=== PATIENT | female | born 1980 ===

== ENCOUNTER 2021-08-25 20:56 | Inpatient (IN) | payer MEDICAID ==
[2021-08-25] MEDS ORDERED: METHYLERGONOVINE MALEATE 0.2 MG/ML VIAL IM PRN (22:25)
[2021-08-25] MEDS ORDERED: MINERAL OIL 30 ML ORAL LIQD PO PRN (22:25)
[2021-08-25] MEDS ORDERED: BUTORPHANOL 2 MG/1 ML INJ IV PRN (22:25)
[2021-08-25] MEDS ORDERED: OXYTOCIN 10 UNIT/1 ML INJ IM PRN (22:25)
[2021-08-25] MEDS ORDERED: ACETAMINOPHEN 325 MG TAB PO PRN (22:25)
[2021-08-25] MEDS ORDERED: CARBOPROST TROMETHAMINE 250 MCG/1 ML INJ IM PRN (22:25)
[2021-08-25] MEDS ORDERED: ePHEDrine SULFATE 50 MG/1 ML INJ IV PRN (22:25)
[2021-08-25] MEDS ORDERED: fentaNYL 100 MCG/2 ML INJ IV PRN (22:25)
[2021-08-25] MEDS ORDERED: LIDOCAINE (2%) 20 MG/1 ML VIAL 20 ML MDV INFILTRATI ONE (22:25)
[2021-08-25] MEDS ORDERED: TERBUTALINE 1 MG/1 ML INJ SUB-Q PRN (22:25)
[2021-08-25] MEDS ORDERED: DINOPROSTONE 10 MG VAG SUPP VG ONE (22:25)
[2021-08-25] MEDS ORDERED: LOPERAMIDE 2 MG CAP PO PRN (22:25)
[2021-08-25] MEDS ORDERED: miSOPROStol 200 MCG TAB PR PRN (22:25)
[2021-08-25 22:49] LABS: Mean Corpuscular HGB Conc 34 % (30-34)
[2021-08-25] MEDS ORDERED: OXYTOCIN DRIP 30 UNITS/500 ML BAG IV SCH ×2 (23:00)
[2021-08-25] MEDS ORDERED: AMPICILLIN/NS 2 GM/100 ML 2 GM/100 ML BAG IV ONE (23:00)
[2021-08-25] MEDS: LACTATED RINGERS 1,000 ML IV SCH (23:06)
[2021-08-25 23:08] LABS: Hematocrit 40.4 % (30.3-42.9); Hemoglobin 13.7 gm/dl (10.1-14.3); Mean Corpuscular Volume 93 fl (79-97); Red Blood Count 4.35 M/mm3 (3.65-5.03)
[2021-08-25 23:11] LABS: Albumin 3.1 g/dL (3.9-5); Calcium 8.8 mg/dL (8.4-10.2)
[2021-08-25 23:24] LABS: Platelet Count 107 K/mm3 (140-440)
[2021-08-26 00:13] LABS: Alanine Aminotransferase 17 units/L (7-56); Albumin 3.1 g/dL (3.9-5); BUN/Creatinine Ratio 17; Blood Urea Nitrogen 15 mg/dL (7-17); Hemolysis Index 34
[2021-08-26] MEDS: AMPICILLIN/NS 1 GM/50 ML 1 GM/50 ML BAG IV SCH ×3 (05:22→14:42)
[2021-08-26] MEDS: LACTATED RINGERS 1,000 ML IV SCH ×3 (09:25→22:04)
--- NOTE | 2021-08-26 10:31 | History and Physical Report ---
History of Present Illness Date of examination: 08/26/21 Date of admission: 08/25/21 20:56 Chief complaint: Presents for a scheduled induction of labor due to Cholestasis of History of present illness: Early entry to care at [facility], course complicated by Advanced Maternal Age and Cholestasis. Past History Past Medical History: no pertinent history Past Surgical History: no surgical history Family/Genetic History: hypertension Social history: no significant social history - Obstetrical History Expected Date of Delivery: 09/06/21 Actual Gestation: 38 Week(s) 3 Day(s) : 4 Para: 3 Hx # Term Pregnancies: 3 Number of Living Children: 3 #1 Gender: Male year: 1,[birth year] Birthweight: 3.175 kg Method of Delivery: Vaginal Gestational age at delivery: 40 Complications: none #2 Infant Gender: Female year: 2,[birth year] Birthweight: 2.863 kg Method of Delivery: Vaginal Gestational age at delivery: 40 Complications: none #3 Gender: Female year: 2,009 Birthweight: 3.77 kg Method of Delivery: Vaginal Gestational age at delivery: 40 Complications: none Medications and Allergies Allergies Allergy/AdvReac Type Severity Reaction Status Date / Time No Known Allergies Allergy Unverified 09/30/14 23:14 Home Medications Medication Instructions Recorded Confirmed Last Taken Type No Known Home Medications [No 09/30/14 09/30/14 Unknown History Reported Home Medications] Active Meds: Active Medications Acetaminophen (Acetaminophen 325 Mg Tab) 650 mg PO Q4H PRN PRN Reason: Pain, Mild (1-3) Butorphanol Tartrate (Butorphanol 2 Mg/1 Ml Inj) 1 mg IV Q2H PRN PRN Reason: Pain, Moderate(4-6) LABOR PAIN Carboprost Tromethamine (Carboprost Tromethamine 250 Mcg/1 Ml Inj) 250 mcg IM ONCE PRN PRN Reason: Uterine Bleeding Ephedrine Sulfate (Ephedrine Sulfate 50 Mg/1 Ml Inj) 10 mg IV Q2M PRN PRN Reason: Hypotension Fentanyl (Fentanyl 100 Mcg/2 Ml Inj) 100 mcg IV Q2H PRN PRN Reason: Pain,Severe (7-10) LABOR PAIN Oxytocin/Sodium Chloride (Pitocin/Ns 30 Unit/500ml) 30 units in 500 mls @ 2 mls/hr IV TITR ERENDIRA; Protocol Last Admin: 08/26/21 08:15 Dose: 2 mls/hr, 2 mls/hr Documented by: Lactated Ringer's (Lactated Ringers) 1,000 mls @ 125 mls/hr IV DIRECT ERENDIRA Last Admin: 08/26/21 09:25 Dose: 125 mls/hr Documented by: Oxytocin/Sodium Chloride (Pitocin/Ns 30 Unit/500ml) 30 units in 500 mls @ 40 mls/hr IV TITR ERENDIRA; Protocol Ampicillin Sodium (Ampicillin/Ns 1 Gm/50 Ml) 1 gm in 50 mls @ 100 mls/hr IV Q4H ERENDIRA; Protocol Last Admin: 08/26/21 05:22 Dose: 100 mls/hr Documented by: Loperamide HCl (Loperamide 2 Mg Cap) 2 mg PO ONCE PRN PRN Reason: give with Hemabate Methylergonovine Maleate (Methylergonovine Maleate 0.2 Mg/Ml Vial) 0.2 mg IM ONCE PRN PRN Reason: Uterine Bleeding Mineral Oil (Mineral Oil 30 Ml Oral Liqd) 30 ml PO QHS PRN PRN Reason: Constipation Misoprostol (Misoprostol 200 Mcg Tab) 800 mcg MN ONCE PRN PRN Reason: Uterine Bleeding Oxytocin (Oxytocin 10 Unit/1 Ml Inj) 10 unit IM ONCE PRN PRN Reason: Uterine Bleeding Terbutaline Sulfate (Terbutaline 1 Mg/1 Ml Inj) 0.25 mg SUB-Q ONCE PRN PRN Reason: Hyperstimulation/Hypertonicity Review of Systems All systems: negative - Vital Signs Vital signs: Vital Signs Pulse Pulse Ox 87 99 08/25/21 21:25 08/25/21 21:25 Temp Pulse Resp BP Pulse Ox 99.1 F 78 12 123/68 99 08/25/21 21:29 08/26/21 10:22 08/25/21 21:29 08/26/21 08:07 08/26/21 10:22 - Physical Exam Breasts: Positive: normal Cardiovascular: Regular rate Lungs: Positive: Clear to auscultation, Normal air movement Abdomen: Positive: normal appearance, soft, normal bowel sounds Genitourinary (Female): Positive: normal external genitalia, normal perenium Vagina: Positive: normal moisture Uterus: Positive: enlarged Anus/Rectum: Positive: normal perianal skin - Obstetrical FHR: category 1 Uterine Contraction Monitor Mode: External Cervical Dilatation: 1 Cervical Effacement Percentage: 20 station: -4 Uterine Contraction Pattern: Irregular Uterine Tone Measurement Phase: Resting Uterine Contraction Intensity: Moderate Results Result Diagrams: 08/25/21 21:42 08/25/21 23:27 Abnormal lab results 08/25/21 08/25/21 08/25/21 Range/Units 21:42 21:42 23:27 RDW 16.0 H (13.2-15.2) % Plt Count 107 L (140-440) K/mm3 Sodium 134 L 134 L (137-145) mmol/L Carbon Dioxide 19 L 19 L (22-30) mmol/L Alkaline Phosphatase 270 H 254 H (35-129) units/L Albumin 3.1 L 3.1 L (3.9-5) g/dL All other labs normal. Assessment and Plan A: IUP @ 38 3/7 Weeks Category I Tracing AMA Cholestasis of GBS Positive P: Admit to L&D Per Routine Orders Low-Dose Pitocin Cook's Cerical Ripening Balloon GBS Prophylaxis
[2021-08-26] MEDS ORDERED: METOCLOPRAMIDE 10 MG/2 ML INJ ONE (18:55)
[2021-08-26] MEDS ORDERED: BICITRA ORAL LIQD 30ML ONE (18:55)
[2021-08-26] MEDS ORDERED: ceFAZolin/Water 2 GM/20 ML 2 GM/20 ML SYRINGE IV ONE (18:56)
[2021-08-26] MEDS ORDERED: FAMOTIDINE 20 MG/2 ML INJ IV ONE (18:56)
[2021-08-26] MEDS ORDERED: FAMOTIDINE 20 MG/2 ML INJ IV SCH (18:58)
[2021-08-26] MEDS ORDERED: METOCLOPRAMIDE 10 MG/2 ML INJ IV SCH (18:58)
[2021-08-26] MEDS ORDERED: BICITRA ORAL LIQD 30ML PO SCH (18:58)
--- NOTE | 2021-08-26 18:59 | Event Note ---
Date: 08/26/21 sign out received from BRITTANY Vines. I was called to bedside by nurse because pt wanted the balloon removed. When I examined the patient the gentle tug on wilder balloon and same removed without difficulty. Pt was in a pool of water and pelvic exam done by me with no presenting part felt in the pelvis. U/S at bedside by me confirmed breech presentation and all induction stopped. Discussed new plan of care for delivery via section. Discussed the risks and benefits and alternatives. Consents obtained and tile finisher used to sign consents. Provider Jasmyn notified of my findings and message sent to MD valerio at that time. NICU and Anesthesiologist notified and will plan for delivery in the OR. Pelvic now -/high.
[2021-08-26] MEDS ORDERED: ONDANSETRON 4 MG/2 ML INJ ONE ×2 (19:05)
[2021-08-26] MEDS ORDERED: ONDANSETRON 4 MG/2 ML INJ IV PRN (19:16)
[2021-08-26] MEDS ORDERED: HYDROmorphone 1 MG/1 ML INJ IV PRN ×2 (19:16)
[2021-08-26] MEDS ORDERED: NALOXONE 0.4 MG/1 ML INJ IV PRN ×2 (19:16→21:52)
--- NOTE | 2021-08-26 19:16 | Anesthesia Consultation ---
Anesthesia Consult and Med Hx Date of service: 08/26/21 - Airway Anesthetic Teeth Evaluation: Poor ROM Head & Neck: Adequate Mental/Hyoid Distance: Adequate Mallampati Class: Class II Intubation Access Assessment: Probably Good - Pulmonary Exam CTA: Yes - Cardiac Exam Cardiac Exam: RRR - Pre-Operative Health Status ASA Pre-Surgery Classification: ASA2 Proposed Anesthetic Plan: Spinal - Pulmonary Hx Smoking: No Hx Asthma: No Hx Respiratory Symptoms: No SOB: No COPD: No Home Oxygen Therapy: No Hx Pneumonia: No Hx Sleep Apnea: No - Cardiovascular System Hx Hypertension: No Hx Coronary Artery Disease: No Hx Heart Attack/AMI: No Hx Angina: No Hx Percutaneous Transluminal Coronary Angioplasty (PTCA): No Hx Cardia Arrhythmia: No Hx Pacemaker: No Hx Internal Defibrillator: No Hx Valvular Heart Disease: No Hx Heart Murmur: No Hx Peripheral Vascular Disease: No - Central Nervous System Hx Neuromuscular Disorder: No Hx Seizures: No CVA: No Hx Back Pain: Yes Hx Psychiatric Problems: No - Gastrointestinal Hx Ulcer: No Hx Gastroesophageal Reflux Disease: Yes (Cholestasis of ) - Endocrine Hx Renal Disease: No Hx End Stage Renal Disease: No Hx Cirrhosis: No Hx Liver Disease: No Hx Insulin Dependent Diabetes: No Hx Non-Insulin Dependent Diabetes: No Hx Thyroid Disease: No Hx Hypothyroidism: No Hx Hyperthyroidism: No - Hematic Hx Anemia: No Hx Sickle Cell Disease: No - Other Systems Hx Alcohol Use: No Hx Substance Use: No Hx Cancer: No Hx Obesity: Yes
[2021-08-26] MEDS ORDERED: PHENYLEPHRINE/NS 1,000 MCG/10 ML SYRINGE (OR USE) IV ONE (19:27)
[2021-08-26] MEDS ORDERED: ceFAZolin/STERILE WATER 2 GM/20 ML SYRINGE IV ONE (19:30)
[2021-08-26] MEDS ORDERED: SODIUM CHLORIDE 0.9% IRR 1,500 ML BOTTLE IR ONE (20:00)
[2021-08-26] MEDS ORDERED: WATER FOR IRRIG STERILE 1,500 ML BOTTLE IR ONE (20:00)
[2021-08-26] MEDS ORDERED: BUPIVACAINE/PF (0.25%) 2.5 MG/ML 30 ML VIAL INFILTRATI ONE ×2 (20:05)
[2021-08-26] MEDS ORDERED: dexAMETHasone 20 MG/5 ML VIAL ONE (20:05)
--- NOTE | 2021-08-26 21:48 | Progress Note ---
Spinal Anesthesia Block - Spinal Anesthesia Block Start Time: 19:30 Stop Time: 19:34 Performed by:: CHARY PENG Procedure: Patient IDed, H&P reviewed, all questions and concerns were answered, and consent was signed. Timeout was performed at bedside. Patient in sitting position. Sterile prep and drape was performed. [3] ml of 1% lidocaine skin wheal at L[3]- L [4]. Needle introducer advanced. 25 gauge spinal needle advanced. Clear, free flowing CSF. negative blood, negative paresthesia. Spinal dose given. All needles removed. Patient tolerated procedure.
--- NOTE | 2021-08-26 21:51 | Progress Note ---
Regional Anesthesia Block - Regional Anesthesia Block Start Time: 21:31 Stop Time: 21:33 Performed By:: CHARY PENG Procedure: Patient consented for TAP block for post surgical pain management. Patient identified, monitors placed, and time out performed. TAP identified bilaterally via ultrasound. Skin prepped bilaterally with [chlorhexidine] and [22g stimuplex] needle advanced to the TAP. [Marcaine 0.25% 30ml] injected under ultrasound guidance on the [left] side. [Marcaine 0.25% 30ml] injected under ultrasound guidance on the [right] side. Negative aspiration every 5mL, No change in heart rate or rhythm. Patient tolerated the procedure well. No apparent complications seen.
[2021-08-26] MEDS ORDERED: LANOLIN/ZINC/DIMETHICONE (LANSINOH) 7 GM TP PRN (21:52)
[2021-08-26] MEDS ORDERED: WITCH HAZEL/ GLYCERIN PAD TP PRN (21:52)
[2021-08-26] MEDS ORDERED: MAGNESIUM HYDROXIDE (MOM) ORAL LIQD UDC PO PRN (21:52)
[2021-08-26] MEDS ORDERED: IBUPROFEN 600 MG TAB PO PRN (21:52)
[2021-08-26] MEDS ORDERED: SIMETHICONE 80 MG CHEW TAB PO PRN (21:52)
[2021-08-26] MEDS ORDERED: MORPHINE 4 MG/1 ML INJ IV PRN (21:52)
[2021-08-26] MEDS ORDERED: OXYTOCIN DRIP 30 UNITS/500 ML BAG IV SCH (22:00)
--- NOTE | 2021-08-26 22:20 | Procedure Note ---
OB Delivery Note - Delivery Date of Delivery: 08/26/21 Surgeon: KRISTINE FERRER Estimated blood loss: other (544cc) - Section Preop diagnosis: breech, other (Thrombocytopenia; Induction stopped when breech presentation identified via ultrasound at bedside) Postop diagnosis: same section procedure: primary low transverse Disposition: floor Complications: none Narrative: Date: 08/26/21 Surgeon: Kristine Ferrer MD Preop Dx: Term IUP at 38.3wks with cholestasis, Induction terminated with breech presentation via ultrasound, thrombocytopenia Postop Dx: same Procedure : Primary Low transverse section Anesthesia: Spinal and then tap block in recovery room Intake: 1200cc crystalloids Output: 100cc clear urine at end of procedure EBL: 544cc per QBL by nurse After the risks, benefits and alternatives of procedure discussed, patient signed consents and was taken to the operating room. Pt was given spinal anesthesia. After same was adequate, patient was prepped and draped in the usual sterile fashion. Milner catheter in place and draining clear urine. Pt was given prophylactic antibiotic per protocol and time out was done Pfannenstiel skin incision was made and taken sharply to the fascia and the incision extended using electrocautery. Superior edge of the fascia was grasped with demi clamps and the rectus muscle using blunt dissection and also using electrocautery. Lower portion of the fascia also with electrocautery. Rectus muscle in the midline and Peritoneal cavity entered bluntly and extended with good visualization of the bladder. The bladder flap was created sharply using metzenbaum scissors. Ceasar retractor used and bladder blade as well. Lower uterine segment then entered transversely, thru anterior placenta inferior edge and amniotic sac entered bluntly. Uterine incision extended using bandage scissors. Infant delivered esau breech without difficulty, bulb suctioned, cord clamped and baby handed to waiting pediatricians. Placenta then delivered completely and uterine cavity cleared of all clots and debri. The uterus was not exteriorized and closed in 2 layers using 0-monocryl suture in a running locked fashion and then an additional layer of imbrication suture. Central additional suture placed figure of 8 to achieve excellent hemostasis. Surgicel placed along the uterine incision and electrocautery used along bladder flap edge with excellent hemostasis The gutters were cleared of clots and debri and anterior peritoneum closed using 3-0 vicryl suture and rectus muscle reapproximated using 0-vicryl suture. Rectus fascia closed with 0-vicryl suture in a continuous fashion and subcutaneo us tissue copiously irrigated with normal saline and re-approximated using 3-0 vicryl suture. Excellent hemostasis remains. The skin was closed with 4-0 monocryl] suture and steristrips placed with pressure dressing. Sponge, lap, instrument and needle counts x3 were normal. Patient tolerated the procedure well and was taken to recovery room stable. Findings: Viable male , esau breech presentation, APGARS 9/9 and weight 3110g. Clear amniotic fluid with anterior placenta; Normal uterus, tubes and ovaries. - Infant A at 1 minute: 9 at 5 minutes: 9 Infant Gender: Male (clear amniotic fluid, breech.)
--- NOTE | 2021-08-26 22:51 | Post Anesthesia Evaluation ---
- Post Anesthesia Evaluation Patient Participated: Yes Airway Patent: Yes Stable Respiratory Function: Yes Nausea/Vomiting: No Temp > 96.8F: Yes Pain Manageable: Yes Adequeate Hydration: Yes Anesthesia Complications: No Block Receding Appropriately: Yes Patient on Ventilator: No
[2021-08-27] MEDS ORDERED: D5W/LACTATED RINGERS 1,000 ML IV SCH (04:15)
--- NOTE | 2021-08-27 12:49 | Progress Note ---
Assessment and Plan A: /postop day 1 S/P primary LTCS. Cholestasis of . Thrombocytopenia. Obesity. P: Repeat CBC results pending. CMP repeated. Advance diet as tolerated. Advised patient to ambulate. Continue routine postop care. Subjective - Subjective Date of service: 08/27/21 Principal diagnosis: /postop day 1 S/P primary LTCS Interval history: Had cholestasis of . Thrombocytopenia; CBC has been drawn this morning and results are still pending. Patient reports: appetite normal, voiding normally, pain well controlled, flatus, ambulating normally, no dizzy ambulation, no nauseated : doing well Objective - Vital Signs Latest vital signs: Vital Signs Temp Pulse Resp BP BP Pulse Ox Pulse Ox 08/27/21 12:18 98.3 F 63 18 126/79 94 08/27/21 08:30 100 08/27/21 07:41 98.3 F 66 18 145/79 95 08/27/21 04:45 98.3 F 88 18 122/68 98 08/27/21 04:15 18 08/27/21 00:11 100 08/26/21 23:27 98.7 F 68 18 144/62 97 08/26/21 23:00 98.7 F 72 13 143/88 08/26/21 22:45 63 13 144/75 08/26/21 22:30 66 13 136/71 08/26/21 22:15 62 13 133/68 08/26/21 22:00 64 14 118/63 08/26/21 21:42 97.1 F L 61 15 118/60 08/26/21 19:07 82 99 08/26/21 19:02 78 96 08/26/21 18:57 80 96 08/26/21 18:55 91 H 93 08/26/21 18:52 110 H 98 08/26/21 18:49 75 90 08/26/21 18:47 79 97 08/26/21 18:42 76 99 08/26/21 18:37 112 H 87 08/26/21 18:32 93 H 100 08/26/21 18:28 94 H 92 08/26/21 18:27 101 H 93 08/26/21 18:22 75 99 08/26/21 18:17 77 99 08/26/21 18:12 92 H 100 08/26/21 18:07 79 133/75 100 08/26/21 18:02 76 99 08/26/21 17:57 76 99 08/26/21 17:52 71 98 08/26/21 17:47 65 99 08/26/21 17:42 67 98 08/26/21 17:37 59 L 99 08/26/21 17:32 66 99 08/26/21 17:27 59 L 99 08/26/21 17:22 67 98 08/26/21 17:17 71 99 08/26/21 17:12 68 99 08/26/21 17:07 62 98 08/26/21 17:02 65 99 08/26/21 16:57 58 L 99 08/26/21 16:52 58 L 98 08/26/21 16:47 60 98 08/26/21 16:42 71 98 08/26/21 16:37 64 98 08/26/21 16:32 68 98 08/26/21 16:27 70 97 08/26/21 16:26 71 126/65 08/26/21 16:22 76 100 08/26/21 16:17 71 100 08/26/21 16:12 66 97 08/26/21 16:07 60 99 08/26/21 16:02 64 98 08/26/21 15:57 78 99 08/26/21 15:52 76 99 08/26/21 15:47 85 99 08/26/21 15:42 72 99 08/26/21 15:37 75 100 08/26/21 15:32 88 99 08/26/21 15:27 82 99 08/26/21 15:22 65 99 08/26/21 15:17 64 97 08/26/21 15:12 63 98 08/26/21 15:07 62 98 08/26/21 15:02 63 97 08/26/21 14:57 63 96 08/26/21 14:52 76 98 08/26/21 14:51 64 94 08/26/21 14:47 74 96 08/26/21 14:42 68 98 08/26/21 14:37 70 99 08/26/21 14:36 61 133/85 08/26/21 14:32 60 98 08/26/21 14:27 62 98 08/26/21 14:22 74 99 08/26/21 14:17 68 98 08/26/21 14:12 78 99 08/26/21 14:07 68 97 08/26/21 14:02 65 98 08/26/21 13:57 68 98 08/26/21 13:54 67 93 08/26/21 13:52 62 98 08/26/21 13:47 61 99 08/26/21 13:42 67 97 08/26/21 13:37 63 97 08/26/21 13:32 82 98 08/26/21 13:27 65 98 08/26/21 13:22 57 L 97 08/26/21 13:17 61 98 08/26/21 13:12 68 99 08/26/21 13:07 74 99 08/26/21 13:02 62 98 08/26/21 12:57 66 99 08/26/21 12:52 70 98 08/26/21 12:47 68 97 Intake and Output 08/26/21 08/27/21 08/27/21 23:59 07:59 15:59 Intake Total 2791.567 100 260 Output Total 900 2600 Balance 1891.567 100 -2340 Intake: IV 2791.567 100 Lactated Ringers 1,000 ml 1537.5 @ 125 mls/hr IV DIRECT [facility] Rx#:[id number] PITOCin/NS 30 UNIT/500ML 54.067 30 units In 500 ml @ 2 mls/hr IV TITR ERENDIRA Rx#: [id number] ceFAZolin 2 GM In NaCl 0. 100 9% 100 ml @ 200 mls/hr IV Q8H [facility] Rx#:[id number] Oral 260 Output: Urine 900 2600 Indwelling Catheter 2200 Uretheral (Milner) 400 Void 400 Other: Total, Intake Amount 260 Total, Output Amount 600 # Voids Indwelling Catheter 1 Void 1 Estimated Blood Loss 544 - Exam Cardiovascular: Present: Regular rate Lungs: Present: Clear to auscultation Abdomen: Present: normal appearance, soft, normal bowel sounds. Absent: distention, tenderness, guarding, rigidity Uterus: Present: normal, firm, fundal height below umbilicus. Absent: bogginess, tenderness Extremities: Present: edema. Absent: tenderness Incision: Present: dry, dressed
[2021-08-27 13:19] LABS: Basophils % (Auto) 0.1 % (0.0-1.8); Hematocrit 39.7 % (30.3-42.9); Hemoglobin 12.9 gm/dl (10.1-14.3); Lymphocytes # (Auto) 1.8 K/mm3 (1.2-5.4); Lymphocytes % (Auto) 12.6 % (13.4-35.0); Mean Corpuscular HGB Conc 33 % (30-34); Mean Corpuscular Volume 93 fl (79-97); Monocytes # (Auto) 0.7 K/mm3 (0.0-0.8); Monocytes % (Auto) 4.7 % (0.0-7.3); Red Blood Count 4.28 M/mm3 (3.65-5.03); Red Cell Distribution Width 16.1 % (13.2-15.2)
[2021-08-27 14:39] LABS: Platelet Count 91 K/mm3 (140-440)
[2021-08-27] MEDS: oxyCODONE /ACETAMINOPHEN 5-325MG TAB PO PRN (15:14)
[2021-08-27] MEDS: IBUPROFEN 800 MG TAB PO PRN (18:26)
[2021-08-27 18:35] LABS: Albumin 2.8 g/dL (3.9-5); Calcium 8.6 mg/dL (8.4-10.2)
--- NOTE | 2021-08-28 06:28 | Progress Note ---
Subjective - Subjective Date of service: 08/28/21 Principal diagnosis: /postop day 2 S/P primary LTCS Interval history: continue routine postop care dc home tomorrow Ambrocio Pepper MD Patient reports: appetite normal, voiding normally, pain well controlled, ambulating normally : doing well Objective - Vital Signs Latest vital signs: Vital Signs Temp Pulse Resp BP Pulse Ox Pulse Ox 08/28/21 00:13 98.3 F 78 20 114/47 94 08/27/21 20:15 98 08/27/21 15:20 98.8 F 67 20 134/72 98 08/27/21 12:18 98.3 F 63 18 126/79 94 08/27/21 08:30 100 08/27/21 07:41 98.3 F 66 18 145/79 95 Intake and Output 08/27/21 08/27/21 08/28/21 15:59 23:59 07:59 Intake Total 360 260 Output Total 3000 1700 Balance -2640 -1440 Intake: IV 100 ceFAZolin 2 GM In NaCl 0. 100 9% 100 ml @ 200 mls/hr IV Q8H [facility] Rx#:[id number] Oral 260 260 Output: Urine 3000 1700 Indwelling Catheter 2200 Void 800 1700 Other: Total, Intake Amount 260 260 Total, Output Amount 400 800 # Voids Indwelling Catheter 1 Void 1 1 - Exam Breasts: Present: deferred Cardiovascular: Present: Regular rate Lungs: Present: Clear to auscultation Abdomen: Present: normal appearance, normal bowel sounds Vulva: both: normal Uterus: Present: normal, firm, fundal height below umbilicus Extremities: Present: normal Deep Tendon Reflex Grade: Normal +2 Incision: Present: normal, dry, dressed - Labs Labs: Abnormal lab results 08/27/21 08/27/21 Range/Units 13:03 17:59 WBC 14.3 H (4.5-11.0) K/mm3 RDW 16.1 H (13.2-15.2) % Plt Count 91 L (140-440) K/mm3 Lymph % (Auto) 12.6 L (13.4-35.0) % Seg Neutrophils % 82.6 H (40.0-70.0) % Seg Neutrophils # 11.8 H (1.8-7.7) K/mm3 Carbon Dioxide 21 L (22-30) mmol/L Glucose 103 H (65-100) mg/dL AST 43 H (5-40) units/L Alkaline Phosphatase 214 H (35-129) units/L Total Protein 5.6 L (6.3-8.2) g/dL Albumin 2.8 L (3.9-5) g/dL
[2021-08-28] MEDS: IBUPROFEN 800 MG TAB PO PRN (06:58)
[2021-08-28] MEDS: oxyCODONE /ACETAMINOPHEN 5-325MG TAB PO PRN (18:35)
--- NOTE | 2021-08-29 05:59 | Discharge Summary ---
Providers - Providers Date of Admission: 08/25/21 20:56 Date of discharge: 08/29/21 Attending physician: ANA LOPEZ MD Primary care physician: ANA LOPEZ MD Hospitalization Reason for admission: induction of labor Delivery: Procedure: section complications: none Discharge diagnosis: IUP at term delivered Condition at discharge: Stable Disposition: 01 HOME / SELF CARE / HOMELESS - Discharge Diagnoses (1) Delivery by section for breech presentation Status: Acute Plan - Discharge Medications Prescriptions: oxyCODONE /ACETAMINOPHEN [Percocet 5/325] 1 tab PO Q4HR PRN 21 Days #30 tab PRN Reason: Pain , Severe (7-10) - Provider Discharge Summary Activity: no sex for 6 weeks Diet: routine Additional instructions: [] Smoking cessation referral if applicable(refer to patient education folder for contact #) [] Refer to [facility]'s [facility] Booklet Call your doctor immediately for: * Fever > 100.5 * Heavy vaginal bleeding ( >1 pad per hour) * Severe persistent headache * Shortness of breath * Reddened, hot, painful area to leg or breast * Drainage or odor from incision. * Keep incision clean and dry at all times and follow doctor's instructions regarding bathing/showering - Follow up plan Follow up: ANA LOPEZ MD [Primary Care Provider] - 14 Days
[2021-08-29] MEDS: IBUPROFEN 800 MG TAB PO PRN (08:41)
[2021-08-29 10:32] VITALS: BP 109/64
== END 2021-08-29 14:45 | disposition home or self-care (01) | DRG 786 ==
LOC: LD 20:56 → OB 08-26 23:30
PROVIDERS: ADMIT Obstetrics & Gynecology; ATTEND Obstetrics & Gynecology
PROC: 10D00Z1 Extraction of Products of Conception, Low, Open Approach (ICD-10-PCS; principal; 2021-08-26)
DX: O32.1XX0 Maternal care for breech presentation, not applicable or unspecified (principal); K83.1 Obstruction of bile duct; O26.62 Liver and biliary tract disorders in childbirth; O99.12 Other diseases of the blood and blood-forming organs and certain disorders involving the immune mechanism complicating childbirth; Z3A.38 38 weeks gestation of pregnancy; Z37.0 Single live birth; O99.824 Streptococcus B carrier state complicating childbirth; D69.6 Thrombocytopenia, unspecified; Z82.49 Family history of ischemic heart disease and other diseases of the circulatory system; Z20.822 Contact with and (suspected) exposure to COVID-19; O99.214 Obesity complicating childbirth
CPT/HCPCS: 36415; 80053; 85025; 85027; 86592; 86850; 86900; 86901; G0378; J0290; J0595; J0690; J1100; J1170; J2370; J2405; J2590; J3490; J7120; J7121; U0003